=== PATIENT | female | born 1945 | race Caucasian/White ===

== ENCOUNTER 2019-06-30 06:42 | Outpatient (CLI) | payer MEDICARE, BC ==
--- NOTE | 2019-06-30 10:17 | Ultrasound Report ---
Reason: SKIN NODULE R LOWER ABD,HX OF ANOZAPARIN INJECTION Procedure Date: 06/30/2019 Accession Number: [id number] / [id number] Procedure: US - Abdomen Limited CPT Code: FULL RESULT: EXAM: ABDOMEN ULTRASOUND LIMITED, RUQ EXAM DATE: 06/30/2019 07:19 AM. CLINICAL HISTORY: Skin nodule right lower abdomen, history of enoxaparin injection. COMPARISON: None. TECHNIQUE: Real-time scanning was performed with static images obtained. FINDINGS: Focused ultrasound right lower quadrant of the abdomen at the area of palpable concern and discomfort. There is a 1.0 x 1.1 x 2.9 cm irregular hypoechoic density in the subcutaneous tissues at the area of concern. Slight shadowing at the [place], and internal echogenic focus, potentially related to calcification. This potentially could be related to an injection granuloma. Plain film correlation may be helpful to exclude the potential for foreign body and to identify calcification. IMPRESSION: Findings compatible with an injection granuloma at the area of concern. Plain film correlation may be helpful to exclude the potential of foreign body. If findings persist or worsen, consideration of excision would be suggested. [facility]
== END 2019-06-30 06:43 | disposition home or self-care (01) ==
LOC: DI 06:42
PROVIDERS: ATTEND Family Medicine
DX: R22.2 Localized swelling, mass and lump, trunk (principal)
CPT/HCPCS: 76705